=== PATIENT | male | born 1990 | race African-American/Black ===

== ENCOUNTER 2016-09-01 15:02 | Emergency (ER) | payer MEDICAID ==
[~2016-09-01] VITALS: Ht 172.7 cm; Wt 78.5 kg
[~2016-09-01 15:02] MED LIST: IBUPROFEN800 M1 PO; PENICILLIN V P500 MG PO; PREDNISONE20 M1 PO; TRAMADOL HCL50 MG ORAL
[2016-09-01 15:16] VITALS: BP 134/80
--- NOTE | 2016-09-01 15:32 | Emergency Room Report ---
History of Present Illness General Chief Complaint: Sore Throat Source: Patient Present Illness HPI 26-year-old male presents emergency department complaining of sore throat and swollen tonsils x2 days with intermittent fevers and chills at home. Patient states he took an amoxicillin pill that was given to him by his friend patient states he does not feel that he has gotten any better. Patient reports taking Tylenol. Patient denies cough reports intermittent rhinorrhea denies headache denies nausea vomiting abdominal pain neck pain or rashes. Patient reports ill contacts at work. Denies CP, Palpitations, LOC, AMS, dizziness, Changes in Vision, Sensation, paresthesias, or a sudden severe headache. Allergies: Coded Allergies: No Known Allergies (Unverified , 05/24/14) Patient History Past Medical History: see triage record Past Surgical History: none Pertinent Family History: none Immunizations: UTD Reviewed Nursing Documentation: PMH: Agreed, PSxH: Agreed Nursing Documentation-PMH Past Medical History: No Stated History Review of Systems All Other Systems: negative except mentioned in HPI Physical Exam Vital Signs Date Time Temp Pulse Resp B/P Pulse Ox O2 Delivery O2 Flow Rate FiO2 09/01/16 15:16 97.9 92 16 134/80 99 Room Air Sp02 EP Interpretation: reviewed, normal General Appearance: no apparent distress, alert, GCS 15, non-toxic Head: normocephalic, atraumatic Eyes: bilateral eye PERRL, bilateral eye normal inspection ENT: hearing grossly normal, normal pharynx, no angioedema, normal voice, TMs + canals normal, uvula midline, moist mucus membranes, nasal congestion, tonsillar swelling, pharyngeal erythema, tonsillar exudate Neck: full range of motion, no meningismus, no bony tend, supple/symm/no masses Respiratory: chest non-tender, lungs clear, normal breath sounds, speaking full sentences Cardiovascular #1: regular rate, rhythm, no edema Rectal: deferred Musculoskeletal: back normal, gait/station normal, normal range of motion, non- tender Neurologic: alert, oriented x3, responsive, motor strength/tone normal, sensory intact, speech normal Psychiatric: judgement/insight normal, memory normal, mood/affect normal, no suicidal/homicidal ideation Reflexes: 4+ bicep (R), 4+ bicep (L), 4+ tricep (R), 4+ tricep (L), 4+ knee (R) , 4+ knee (L) Skin: normal color, no rash, warm/dry, well hydrated Lymphatic: no adenopathy Medical Decision Making PA Attestation Dr. Moss is my supervising Physician whom patient management has been discussed with. Diagnostic Impression: Primary Impression: Pharyngitis, streptococcal ER Course Pt. presents to the ED c/o : sore throat, tonsillar swelling, and nasal congestion x 2 days Ddx considered but are not limited to: pharyngitis, strep, [employer], ludwigs angina, URI Vital signs: are WNL, pt. is afebrile H&PE are most consistent with: pharyngitis presumed strep. ORDERS: None required at this time as the diagnosis is clinical ED INTERVENTIONS: none required at this time. DISCHARGE: At this time pt. is stable for d/c to home. Will provide printed patient care instructions, and any necessary prescriptions. Care plan and follow up instructions have been discussed with the patient prior to discharge. Last Vital Signs Date Time Temp Pulse Resp B/P Pulse Ox O2 Delivery O2 Flow Rate FiO2 09/01/16 15:16 97.9 92 16 134/80 99 Room Air Disposition: HOME, SELF-CARE Condition: Stable Departure Forms: Return to Work Return to Work Date: Sep 03, 2016 Work Restrictions: None Return to Full Activity: Sep 03, 2016 Patient Instructions: Pharyngitis, [id number] Additional Instructions: Take medications as directed. Follow up with PCP in 3-5 days Return sooner to ED if new symptoms occur, or current symptoms become worse. - Please note that this Emergency Department Report was dictated using Stravastraightener and aligner technology software, occasionally this can lead to erroneous entry secondary to interpretation by the dictation equipment. Virginia Sullivan Sep 01, 2016 15:32
[2016-09-01] MEDS ORDERED: AMOXICILLIN500 MG ORAL (15:33)
[2016-09-01] MEDS ORDERED: IBUPROFEN600 MG ORAL (15:33)
[2016-09-01 15:43] VITALS: BP 122/74
== END 2016-09-01 15:55 | disposition home or self-care (01) ==
LOC: EMR 15:55
DX: J02.0 Streptococcal pharyngitis (principal)
CPT/HCPCS: 99282

== ENCOUNTER 2017-12-03 12:57 | Emergency (ER) | payer SELFPAY ==
[~2017-12-03] VITALS: Ht 175.3 cm; Wt 77.1 kg
[~2017-12-03 12:57] MED LIST changes: +AMOXICILLIN500 MG ORAL; +IBUPROFEN600 MG ORAL
[2017-12-03 13:05] VITALS: BP 140/87
[2017-12-03] MEDS ORDERED: NKM (13:08)
[2017-12-03] MEDS ORDERED: Methocarbamol 500mg tab ORAL ONE (13:15)
[2017-12-03] MEDS ORDERED: Acetaminophen 500mg (ES) tab ORAL ONE (13:15)
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
[2017-12-03] MEDS ORDERED: ROBAXIN500 MG PO (14:36)
[2017-12-03] MEDS ORDERED: LIDOCAINE700 M1 TP (14:36)
[2017-12-03] MEDS ORDERED: IBUPROFEN600 MG ORAL (14:36)
[2017-12-03 16:10] VITALS: BP 140/87
--- NOTE | 2017-12-03 18:14 | Diagnostic Imaging Report ---
Indication: Left shoulder pain Technique: 3 views of the left shoulder Comparison: None Findings: No acute fractures or dislocations. Joint spaces are preserved. Impression: Negative
== END 2017-12-03 15:00 | disposition home or self-care (01) ==
LOC: EMR 13:30
DX: M25.512 Pain in left shoulder (principal); V43.52XA Car driver injured in collision with other type car in traffic accident, initial encounter; Y92.410 Unspecified street and highway as the place of occurrence of the external cause
CPT/HCPCS: 99284

== ENCOUNTER 2018-02-26 10:32 | Emergency (ER) | payer OTHER ==
[~2018-02-26] VITALS: Ht 175.3 cm; Wt 77.1 kg
[~2018-02-26 10:32] MED LIST changes: +LIDOCAINE700 M1 TP; +NKM; +ROBAXIN500 MG PO
[2018-02-26 11:54] VITALS: BP 129/85
[2018-02-26] MEDS ORDERED: Ketorolac 60mg Inj IM ONE (12:45)
--- NOTE | 2018-02-26 13:24 | Emergency Room Report ---
History of Present Illness General Chief Complaint: Upper Extremity Injury Source: Patient Present Illness HPI The patient states that he was at work yesterday and dropped a heavy knox on his right middle finger. He has pain at that location. He has no other injuries or complaints. Allergies: Coded Allergies: No Known Allergies (Unverified , 05/24/14) Patient History Past Medical History: none, see triage record Social History: Denies: smoking, alcohol use, drug use Reviewed Nursing Documentation: PMH: Agreed; PSxH: Agreed Nursing Documentation-PMH Past Medical History: No Stated History Review of Systems All Other Systems: negative except mentioned in HPI Physical Exam Vital Signs Date Time Temp Pulse Resp B/P (MAP) Pulse Ox O2 Delivery O2 Flow Rate FiO2 02/26/18 10:46 98.2 70 14 133/90 99 Room Air 98.2 Sp02 EP Interpretation: reviewed, normal General Appearance: no apparent distress, alert, GCS 15, non-toxic Head: normocephalic, atraumatic Eyes: bilateral eye normal inspection, bilateral eye PERRL ENT: hearing grossly normal, normal pharynx, no angioedema, normal voice Neck: full range of motion, supple/symm/no masses Respiratory: no respiratory distress, no retraction, no accessory muscle use, speaking full sentences Rectal: deferred Musculoskeletal: back normal, gait/station normal, normal range of motion, other - ecchymosis and small subungal hematoma of the R. DIP and nail. Neurologic: alert, oriented x3, responsive, motor strength/tone normal, sensory intact, speech normal Psychiatric: judgement/insight normal, memory normal, mood/affect normal, no suicidal/homicidal ideation Skin: normal color, no rash, warm/dry, well hydrated Medical Decision Making Diagnostic Impression: Primary Impression: Finger contusion Additional Impression: Subungual hematoma ER Course This patient has a contusion and subungual hematoma. There is no obvious fracture on x-ray. However, I did educate the patient that he should follow-up for a repeat x-ray in 1 week if his pain continues. He was placed in an extension splint. A cautery pen was used to decompress the subungual hematoma. He is educated to follow-up with his Workmen's Comp. clinic for further evaluation by orthopedics. Other X-Ray Diagnostic Results Other X-Ray Diagnostic Results : X-Ray ordered: R. Hand # of Views/Limited Vs Complete: Complete Indication: Pain EP Interpretation: No Interpretation: no dislocation, no fractures Impression: No acute disease Electronically Signed by: Minda Last Vital Signs Date Time Temp Pulse Resp B/P (MAP) Pulse Ox O2 Delivery O2 Flow Rate FiO2 02/26/18 11:54 98.2 70 14 129/85 99 Room Air 98.2 Status: improved Disposition: HOME, SELF-CARE Condition: Improved Referrals: NOT CHOSEN IPA/,REFERRING (PCP) Nabila Thompson DO Feb 26, 2018 13:24
[2018-02-26] MEDS ORDERED: IBUPROFEN800 MG ORAL (13:59)
[2018-02-26 14:42] VITALS: BP 129/85
--- NOTE | 2018-02-26 15:41 | Diagnostic Imaging Report ---
Indication: Trauma, jammed tip of middle finger Technique: 3 views left hand Comparison: none Findings: No acute fractures. Equivocal mild widening of the radial side of the third distal interphalangeal joint, ligamentous injury not excludable. No radiopaque foreign body. Impression: No acute bony trauma Cannot rule out lateral ligamentous injury of the third distal interphalangeal joint
== END 2018-02-26 14:44 | disposition home or self-care (01) ==
LOC: EMR 11:35
DX: S60.031A Contusion of right middle finger without damage to nail, initial encounter (principal); W20.8XXA Other cause of strike by thrown, projected or falling object, initial encounter; Y93.89 Activity, other specified; Y92.89 Other specified places as the place of occurrence of the external cause; Y99.0 Civilian activity done for income or pay
CPT/HCPCS: 96372; 99283

== ENCOUNTER 2018-07-30 13:12 | Emergency (ER) | payer SELFPAY ==
[~2018-07-30] VITALS: Ht 175.3 cm; Wt 79.4 kg
[~2018-07-30 13:12] MED LIST changes: +IBUPROFEN800 MG ORAL
[2018-07-30 13:15] VITALS: BP 130/76
[2018-07-30] MEDS ORDERED: NKM (13:19)
--- NOTE | 2018-07-30 13:25 | NUR ---
ED Nurse Note: PT C/O NAUSEA AND ONE EPISODE OF VOMITING X LAST NIGHT. PT ALSO C/O IRRITATION IN THROAT AND NASAL CONGESTION X THIS AM. PT DENIES NAUSEA AT THIS TIME.
[2018-07-30] MEDS ORDERED: Lidocaine 2% Visc 15ml soln ORAL ONE (13:30)
[2018-07-30] MEDS ORDERED: CLARINEX-D 121 EACH PO (13:34)
[2018-07-30] MEDS ORDERED: FLONASE ALLERG9.9 ML NS (13:34)
--- NOTE | 2018-07-30 13:34 | Emergency Room Report ---
History of Present Illness General Chief Complaint: General Complaint Source: Patient Present Illness HPI 28-year-old male patient presents the ER with multiple complaints. Reports one episode of vomiting yesterday following eating and [employer]. Denies nausea or vomiting currently. Denies blood in vomit. Denies recent travel outside the country. Denies diarrhea. Reports no nausea or vomiting symptoms that time, states is been able to tolerate p.o. fluids without difficulty. Denies abdominal pain currently. Denies fever, chest pain, shortness of breath. Reports sore throat during this time for the past day. Also complaining of rhinorrhea for the past several days. Reports clear sputum. Allergies: Coded Allergies: No Known Allergies (Unverified , 07/30/18) Patient History Past Medical History: see triage record Reviewed Nursing Documentation: PMH: Agreed; PSxH: Agreed Nursing Documentation-PMH Past Medical History: No Stated History Review of Systems All Other Systems: negative except mentioned in HPI Physical Exam Vital Signs Date Time Temp Pulse Resp B/P (MAP) Pulse Ox O2 Delivery O2 Flow Rate FiO2 07/30/18 13:15 98.2 96 16 130/76 98 Room Air Sp02 EP Interpretation: reviewed, normal General Appearance: well appearing, no apparent distress, alert, GCS 15, non- toxic Head: normocephalic, atraumatic Eyes: bilateral eye normal inspection, bilateral eye PERRL ENT: hearing grossly normal, normal pharynx, no angioedema, normal voice, TMs + canals normal, uvula midline, moist mucus membranes, other - uvula midline Neck: full range of motion Respiratory: lungs clear, normal breath sounds, no rhonchi, no respiratory distress, no accessory muscle use, no wheezing, speaking full sentences Cardiovascular #1: regular rate, rhythm, no edema, normal capillary refill Cardiovascular #2: 2+ radial (R), 2+ radial (L) Musculoskeletal: back normal, digits/nails normal, gait/station normal, normal range of motion, non-tender Neurologic: alert, oriented x3, responsive, motor strength/tone normal, sensory intact Skin: no rash, normal turgor Medical Decision Making PA Attestation Dr. Gutierrez is my supervising Physician whom patient management has been discussed with. Diagnostic Impression: Primary Impression: Rhinorrhea Additional Impressions: Vomiting Sore throat ER Course Pt presents to ED c/o sore throat, one episode of nausea vomiting yesterday, rhinorrhea for the past several days. DDX considered but are not limited to pharyngitis, laryngitis, URI, peritonsillar abscess, tonsillitis, gastritis, food poisoning, rhinitis, sinusitis. Low suspicion for peritonsillar abscess, no neck stiffness, no hot potato voice , no stridor. Does not require imaging at this time. VITAL SIGNS are WNL, patient is afebrile. ER COURSE: Physical exam shows no tonsillar swelling, no exudates, no LAD, hx of cough, no fever, low suspicion for Strep Throat per [facility] criteria. Does not require abx at this time. Sore throat likely due to vomiting symptoms. Provide with viscous lidocaine in the ER. Normal cap refill, normal skin turgor, moist mucous membranes, low suspicion for dehydration, patient able to tolerate p.o. fluids, does not require IV fluids at this time. No recent travel, no blood in vomit, no longer having nausea or vomiting symptoms, likely related to food consumption, does not require antibiotics. Nasal congestion noted, will provide patient with medication for rhinorrhea. Patient reports feeling better following administration of medication Salt water gargles ER precautions given. Followup with PCP in 3-5 days. DISCHARGE: At this time pt is stable for d/c to home. Patient is resting comfortably, in no acute distress, nontoxic appearing, talking without difficulty. Will provide with patient care instructions and any necessary prescriptions. Patient to take medication as instructed. Care plan and follow-up instructions provided. Patient questions asked and answered. Patient instructed to follow-up with primary care provider in 3 - 5 days. ER precautions given. Patient instructed to return to ER immediately for any new or worsening of symptoms including but not limited to intractable vomiting, difficulty breathing, inability to eat. - Please note that this Emergency Department Report was dictated using [employer] transcriptionist technology software, occasionally this can lead to erroneous entry secondary to interpretation by the dictation equipment. Last Vital Signs Date Time Temp Pulse Resp B/P (MAP) Pulse Ox O2 Delivery O2 Flow Rate FiO2 07/30/18 13:15 98.2 96 16 130/76 98 Room Air Status: improved Disposition: HOME, SELF-CARE Condition: Stable Scripts Desloratadine/Pseudoephedrine (CLARINEX-D 12 HOUR TABLET) 1 Each Tbmp.12hr 1 EACH PO BID, #24 TAB Prov: Harrison Benson 07/30/18 Fluticasone Propionate (Flonase Allergy Relief) 9.9 Ml [place].susp 9.9 ML NS BID, #9.9 ML Prov: Harrison Benson 07/30/18 Patient Instructions: Allergic Rhinitis, Nausea and Vomiting, Adult, Easy-to- Read, Sore Throat, [id number] Additional Instructions: Followup with primary care provider in 3 -5 days. Salt water gargles Recommend BRAT diet: bananas, rice, apple sauce, toast. Take Tylenol for pain and fever symptoms Drink plenty of water. Take medications as directed. Patient questions asked and answered. ER precautions given, patient instructed to return to ER immediately for any new or worsening of symptoms including but not limited to intractable vomiting, difficulty breathing, inability to eat. Harrison Benson Jul 30, 2018 13:34
--- NOTE | 2018-07-30 13:45 | NUR ---
ED Nurse Note: PT SITTING PEACEFULLY IN BED IN NAD. AOX4. PRESCRIPTIONS AND DISCHARGE PAPERWORK EXPLAINED TO PT. PT VERBALIZES UNDERSTANDING AND ALL QUESTIONS ANSWERED. PRESCRIPTIONS AND DISCHARGE PAPERWORK GIVEN TO PT AND ID WRISTBAND REMOVED. PT WALKED OUT OF ER WITH STEADY GAIT AND ALL BELONGINGS.
[2018-07-30 13:46] VITALS: BP 126/74
== END 2018-07-30 14:00 | disposition home or self-care (01) ==
LOC: EMR 14:00
DX: J34.89 Other specified disorders of nose and nasal sinuses (principal); R11.2 Nausea with vomiting, unspecified; J02.9 Acute pharyngitis, unspecified
CPT/HCPCS: 99282

== ENCOUNTER 2018-11-24 09:50 | Emergency (ER) | payer SELFPAY ==
[~2018-11-24] VITALS: Ht 172.7 cm; Wt 77.1 kg
[~2018-11-24 09:50] MED LIST changes: +CLARINEX-D 121 EACH PO; +FLONASE ALLERG9.9 ML NS
[2018-11-24 09:53] VITALS: BP 119/67
[2018-11-24 10:23] VITALS: BP 127/80
--- NOTE | 2018-11-24 10:23 | NUR ---
ER DISCHARGE NOTE: PT WAS SEEN DUE TO SORETHROAT, FLU LIKE SYMPTOMS/DIARRHEA. Patient is cleared to be discharged per ERMD, pt is aox4, on room air, with stable vital signs. pt was given dc and prescription instructions, pt was able to verbalize understanding, pt id band removed. pt is able to ambulate with steady gait. pt took all belongings.
--- NOTE | 2018-11-24 10:58 | Emergency Room Report ---
History of Present Illness General Chief Complaint: Sore Throat Source: Patient Present Illness HPI 28-year-old male presents ED for evaluation. Patient complaining of sore throat , congestion and cough since yesterday. Also had a few episodes of diarrhea. Pain is burning, 5 out of 10, nonradiating. Cough is productive with yellowish phlegm. Denies fevers or chills. Denies sick contacts or recent travel. Denies nausea or vomiting. No other aggravating or relieving factors. Denies any other associated symptoms Allergies: Coded Allergies: No Known Allergies (Unverified , 07/30/18) Patient History Past Medical History: none Past Surgical History: none Pertinent Family History: none Social History: Denies: smoking, alcohol use, drug use Immunizations: UTD Reviewed Nursing Documentation: PMH: Agreed; PSxH: Agreed Nursing Documentation-PMH Past Medical History: No Stated History Review of Systems All Other Systems: negative except mentioned in HPI Physical Exam Vital Signs Date Time Temp Pulse Resp B/P (MAP) Pulse Ox O2 Delivery O2 Flow Rate FiO2 11/24/18 09:53 98.4 83 17 119/67 98 Sp02 EP Interpretation: reviewed, normal General Appearance: no apparent distress, alert, GCS 15, non-toxic Head: normocephalic, atraumatic Eyes: bilateral eye normal inspection, bilateral eye PERRL ENT: hearing grossly normal, no angioedema, normal voice, TMs + canals normal, uvula midline, pharyngeal erythema Neck: full range of motion, supple/symm/no masses Respiratory: chest non-tender, lungs clear, normal breath sounds, speaking full sentences Cardiovascular #1: regular rate, rhythm, no edema Cardiovascular #2: 2+ carotid (R), 2+ carotid (L), 2+ radial (R), 2+ radial (L) , 2+ dorsalis pedis (R), 2+ dorsalis pedis (L) Gastrointestinal: normal bowel sounds, non tender, soft, non-distended, no guarding, no rebound Rectal: deferred Genitourinary: normal inspection, no CVA tenderness Musculoskeletal: back normal, gait/station normal, normal range of motion, non- tender Neurologic: alert, oriented x3, responsive, motor strength/tone normal, sensory intact, speech normal Psychiatric: judgement/insight normal, memory normal, mood/affect normal, no suicidal/homicidal ideation Reflexes: 3+ bicep (R), 3+ bicep (L), 3+ tricep (R), 3+ tricep (L), 3+ knee (R) , 3+ knee (L) Skin: normal color, no rash, warm/dry, well hydrated Lymphatic: no adenopathy Medical Decision Making Diagnostic Impression: Primary Impression: Upper respiratory infection Qualified Codes: J06.9 - Acute upper respiratory infection, unspecified ER Course Hospital Course 28-year-old male presents to ED complaining of cough, runny nose with sore throat and diarrhea Differential diagnoses include: URI, pharyngitis, otitis media, asthma Clinical course Patient placed on stretcher. After initial history, physical exam reveals a young male in no acute distress. Bilateral TM unremarkable. minimal pharyngeal erythema. No tonsillar exudates. No lymphadenopathy. lungs clear. abdomen soft. Clinical findings consistent with URI. discussed findings with patient. Course is viral and self-limited. Recommend symptomatic treatment. Vitals stable. Afebrile. Good capillary refill. Safe for discharge for close outpatient follow-up. Does not have a PMD. Will provide referrals Diagnosis - URI Stable and discharged home. Instructed to followup with PMD. Return to ED if symptoms recur or worsen Last Vital Signs Date Time Temp Pulse Resp B/P (MAP) Pulse Ox O2 Delivery O2 Flow Rate FiO2 11/24/18 10:23 98.0 79 15 127/80 99 Status: improved Disposition: HOME, SELF-CARE Condition: Stable Referrals: [facility] Patient Instructions: Upper Respiratory Infection, Adult, [id number] Additional Instructions: take a multisymptom medication like tylenol cold and flu, or dayquil/nyquil. Óscar Washington MD Nov 24, 2018 10:58
== END 2018-11-24 10:23 | disposition home or self-care (01) ==
LOC: EMR 10:06
DX: J06.9 Acute upper respiratory infection, unspecified (principal)
CPT/HCPCS: 99281

== ENCOUNTER 2019-01-05 12:21 | Emergency (ER) | payer SELFPAY ==
[~2019-01-05] VITALS: Ht 175.3 cm; Wt 77.1 kg
[2019-01-05 12:33] VITALS: BP 110/67
[2019-01-05] MEDS ORDERED: Clindamycin 150mg cap ORAL ONE (12:45)
[2019-01-05] MEDS ORDERED: CLEOCIN150 MG ORAL (12:49)
[2019-01-05] MEDS ORDERED: KENALOG 0.025%15 GM TP (12:49)
[2019-01-05 12:58] VITALS: BP 115/68
--- NOTE | 2019-01-05 12:58 | NUR ---
ER DISCHARGE NOTE: Patient is cleared to be discharged per PA, pt is aox4, on room air, with stable vital signs. pt was given dc and prescription instructions, pt was able to verbalize understanding, pt id band removed. pt is able to ambulate with steady gait. pt took all belongings.
--- NOTE | 2019-01-05 16:42 | Emergency Room Report ---
History of Present Illness General Chief Complaint: Skin Rash/Abscess Source: Patient Present Illness HPI Patient is a 28-year-old male presenting for right leg insect bite. He states that he noticed a small red bump on his right mart yesterday. This was described as itchy. He then awoke this morning in the area was swollen, red, and painful. Pain is now a 7 out of 10 dull ache. Does not radiate. Worse with touch. He is also noticed some discharge described as being clear. [place] any other symptoms including nausea, vomiting, fever, chills, diarrhea, abd pain Allergies: Coded Allergies: No Known Allergies (Unverified , 07/30/18) Patient History Past Medical History: see triage record Pertinent Family History: none Reviewed Nursing Documentation: PMH: Agreed; PSxH: Agreed Nursing Documentation-PMH Past Medical History: No Stated History Review of Systems All Other Systems: negative except mentioned in HPI Physical Exam Vital Signs Date Time Temp Pulse Resp B/P (MAP) Pulse Ox O2 Delivery O2 Flow Rate FiO2 01/05/19 12:33 98.4 81 16 110/67 (81) 99 Room Air Sp02 EP Interpretation: reviewed, normal General Appearance: no apparent distress, alert, GCS 15, non-toxic Head: normocephalic, atraumatic Eyes: bilateral eye normal inspection, bilateral eye PERRL Musculoskeletal: back normal, gait/station normal, normal range of motion, no calf tenderness, inflammation, tender - R mid lower leg over lesion Neurologic: alert, oriented x3, responsive, motor strength/tone normal, sensory intact, speech normal Psychiatric: judgement/insight normal, memory normal, mood/affect normal, no suicidal/homicidal ideation Skin: rash - R mid lower leg has central small puncture with surrounding erythema, edema Lymphatic: no adenopathy Medical Decision Making PA Attestation Dr. Moss is my supervising physician. Patient management was discussed with my supervising physician Diagnostic Impression: Primary Impression: Cellulitis Qualified Codes: L03.115 - Cellulitis of right lower limb Additional Impression: Insect bite Qualified Codes: S80.861A - Insect bite (nonvenomous), right lower leg, initial encounter; W57.XXXA - Bitten or stung by nonvenomous insect and other nonvenomous arthropods, initial encounter ER Course Patient is a 28-year-old male presenting for right leg insect bite DDx considered but not limited to: cellulitis, abscess, allergic reaction, among others PE: Afebrile. NAD R anterior mid lower leg: erythema, edema, hot to touch, tender. Clear DC. No central clearing Pt given prescription for clindamycin and topical steroid only to used short term. F/u with PCP. ER precautions given Last Vital Signs Date Time Temp Pulse Resp B/P (MAP) Pulse Ox O2 Delivery O2 Flow Rate FiO2 01/05/19 12:58 98.4 78 19 115/68 100 Room Air Status: improved Disposition: HOME, SELF-CARE Condition: Improved Scripts Triamcinolone Acet (Triamcinolone Acetonide) 15 Gm Cream..g. 1 APPLIC TP TID for 3 Days, GM Prov: TOBY ESQUEDA 01/05/19 Clindamycin HCl (Clindamycin HCl) 300 Mg Capsule 300 MG ORAL EVERY 6 HOURS, #28 CAP Prov: TOBY ESQUEDA 01/05/19 Referrals: NOT CHOSEN IPA/,REFERRING (PCP) Patient Instructions: Rash, Insect Bite Additional Instructions: I discussed my findings with the patient. All questions and concerns have been answered. Treatment and medication compliance have been addressed. I advised the patient that they need to follow up with primary doctor in 3-5 days. Return to ER if symptoms worsen, new symptoms arise such as fever or an abscess, or if needed for any reason. Patient verbalized understanding of discharge instructions. TOBY ESQUEDA Jan 05, 2019 16:42
== END 2019-01-05 12:58 | disposition home or self-care (01) ==
LOC: EMR 12:45
DX: S80.861A Insect bite (nonvenomous), right lower leg, initial encounter (principal); L03.115 Cellulitis of right lower limb; W57.XXXA Bitten or stung by nonvenomous insect and other nonvenomous arthropods, initial encounter; Y92.9 Unspecified place or not applicable
CPT/HCPCS: 99282

== ENCOUNTER 2019-05-05 13:12 | Emergency (ER) | payer SELFPAY ==
[~2019-05-05] VITALS: Ht 175.3 cm; Wt 79.4 kg
[~2019-05-05 13:12] MED LIST changes: +CLEOCIN150 MG ORAL; +KENALOG 0.025%15 GM TP
[2019-05-05] MEDS ORDERED: NKM (13:19)
--- NOTE | 2019-05-05 13:26 | NUR ---
ED Nurse Note: Patient walked in from work due to sore throat and weakness for 5 days. Patient states he had 1 episode of vomiting at work this week. Denies SOB. Patient afebrile. PA at bedside. Urine sent to lab.
[2019-05-05 13:44] VITALS: BP 147/95
--- NOTE | 2019-05-05 13:45 | Emergency Room Report ---
History of Present Illness General Chief Complaint: Flu Like Symptoms Source: Patient Present Illness HPI 29-year-old male presents to the emergency department complaining of 6/[address], fatigue, watery eyes, and 1 episode of vomiting since Sunday (x3 days). Pt. denies blood in the vomit he denies constipation, diarrhea or blood in the stool. Patient denies black tarry stool. Patient reports he is vaccinated however he does not receive the yearly flu vaccine. He denies abdominal pain or tenderness. Patient reports some mild nausea but vomiting resolved after first day. He denies cough he reports tender lymph nodes. Denies headache, dizziness, photophobia/neck pain/stiffness. No other aggravating or relieving factors. Patient reports he took DayQuil at 4:50 AM this morning. Allergies: Coded Allergies: No Known Allergies (Unverified , 07/30/18) Patient History Past Medical History: see triage record Past Surgical History: none Pertinent Family History: none Reviewed Nursing Documentation: PMH: Agreed; PSxH: Agreed Nursing Documentation-PMH Past Medical History: No Stated History Review of Systems All Other Systems: negative except mentioned in HPI Physical Exam Vital Signs Date Time Temp Pulse Resp B/P (MAP) Pulse Ox O2 Delivery O2 Flow Rate FiO2 05/05/19 13:15 98.8 96 19 147/95 (112) 98 Room Air Sp02 EP Interpretation: reviewed, normal General Appearance: no apparent distress, alert, GCS 15, non-toxic Head: normocephalic, atraumatic Eyes: bilateral eye normal inspection, bilateral eye PERRL, bilateral eye other - glassy injected eyes bilaterally. ENT: hearing grossly normal, normal pharynx, normal voice, TMs + canals normal , uvula midline, moist mucus membranes, pharyngeal erythema Neck: full range of motion, no meningismus, no bony tend Respiratory: lungs clear, normal breath sounds, no respiratory distress, no accessory muscle use, no wheezing, speaking full sentences Cardiovascular #1: regular rate, rhythm Gastrointestinal: normal bowel sounds, non tender, soft Musculoskeletal: normal range of motion, gait/station normal, non-tender Neurologic: alert, motor strength/tone normal, oriented x3, sensory intact, responsive, speech normal Psychiatric: judgement/insight normal Skin: no rash, normal color Lymphatic: other - anterior cervical LAD bilaterally Medical Decision Making PA Attestation Dr. Smith Is my supervising Physician whom patient management has been discussed with. Diagnostic Impression: Primary Impression: Viral syndrome Additional Impression: Sore throat (viral) ER Course 29-year-old male presents to the emergency department complaining of 6/[address], fatigue, watery eyes, and 1 episode of vomiting since Sunday (x3 days). Pt. denies blood in the vomit he denies constipation, diarrhea or blood in the stool. Patient denies black tarry stool. Patient reports he is vaccinated however he does not receive the yearly flu vaccine. He denies abdominal pain or tenderness. Patient reports some mild nausea but vomiting resolved after first day. He denies cough he reports tender lymph nodes. Denies headache, dizziness, photophobia/neck pain/stiffness. No other aggravating or relieving factors. Patient reports he took DayQuil at 4:50 AM this morning. Ddx considered but are not limited to URI, pneumonia, PE, strep pharyngitis, meningitis, influenza, OM/OE just to name a few. Vital signs: Pt. is afebrile, the remaining VS are WNL H&PE are most consistent with Viral Syndrome low suspicion for Influenza will treat clinically - no meningeal signs, Lungs are clear and oropharynx is not involved, no evidence of bacterial infection at this time. ORDERS: none required at this time, the diagnosis is clinical ED INTERVENTIONS: None required at this time. DISCHARGE: At this time pt. is stable for d/c to home. Will provide printed patient care instructions, and any necessary prescriptions. Care plan and follow up instructions have been discussed with the patient prior to discharge. Last Vital Signs Date Time Temp Pulse Resp B/P (MAP) Pulse Ox O2 Delivery O2 Flow Rate FiO2 05/05/19 13:15 98.8 96 19 147/95 (112) 98 Room Air Disposition: HOME, SELF-CARE Condition: Stable Departure Forms: Return to Work Return to Work Date: May 09, 2019 Work Restrictions: None Other Restrictions: May return Sooner if Symptoms have resolved. Return to Full Activity: May 09, 2019 Patient Instructions: Sore Throat, [id number] Additional Instructions: Take medications as directed. Follow up with a Primary Care Provider in 3-5 days, even if your symptoms have resolved. --Please review list of primary care clinics, if you do not already have a primary care provider Return sooner to ED if new symptoms occur, or current symptoms become worse. - Please note that this Emergency Department Report was dictated using [employer] insights lead technology software, occasionally this can lead to erroneous entry secondary to interpretation by the dictation equipment. Virginia Sullivan May 05, 2019 13:45
[2019-05-05] MEDS ORDERED: TYLENOL EXTRA500 MG ORAL (13:48)
[2019-05-05] MEDS ORDERED: ONDANSETRON ODT4 MG BC (13:48)
[2019-05-05] MEDS ORDERED: LIDOCAINE VISC100 ML ORAL (13:48)
[2019-05-05 13:54] VITALS: BP 147/95
--- NOTE | 2019-05-05 13:54 | NUR ---
ER DISCHARGE NOTE: Patient is cleared to be discharged per ERMD, pt is aox4, on room air, with stable vital signs. pt was given dc and prescription instructions, pt was able to verbalize understanding, pt id band removed. pt is able to ambulate with steady gait. pt took all belongings.
== END 2019-05-05 13:54 | disposition home or self-care (01) ==
LOC: EMR 13:47
DX: B34.9 Viral infection, unspecified (principal); R07.0 Pain in throat
CPT/HCPCS: 99282